=== PATIENT | male | born 1990 ===

== ENCOUNTER 2025-04-26 16:36 | Emergency (ER) | payer OTHER ==
[2025-04-26 16:52] LABS: BASOPHILS ABSOLUTE AUTO 0.08 K/uL (0.00-0.20); BASOPHILS PERCENT AUTO 0.9 % (0.0-2.0); EOSINOPHILS ABSOLUTE AUTO 2.32 K/uL (0.00-0.50); EOSINOPHILS PERCENT AUTO 26.6 % (0.0-5.0); IMMATURE GRAN ABSOLUTE AUTO 0.01 10^3/uL (0.00-0.04); IMMATURE GRAN PERCENT AUTO 0.1 % (0.0-0.4); LYMPHOCYTES ABSOLUTE AUTO 3.98 K/uL (0.50-3.50); LYMPHOCYTES PERCENT AUTO 45.6 % (10.0-50.0); MONOCYTES ABSOLUTE AUTO 0.51 K/uL (0.00-1.00); MONOCYTES PERCENT AUTO 5.8 % (2.0-14.0); NEUTROPHILS ABSOLUTE AUTO 1.82 K/uL (1.40-7.00); NEUTROPHILS PERCENT AUTO 21.0 % (45.0-80.0); PLATELET COUNT,PLT 250 K/uL (150-350); RED BLOOD CELL COUNT 5.57 M/uL (4.33-5.41); RED CELL DISTRIBUTION WIDTH 12.2 % (11.2-14.1); WHITE BLOOD CELL COUNT,WBC 8.7 K/uL (4.0-10.2)
[2025-04-26 17:18] LABS: BILIRUBIN TOTAL 0.6 mg/dL (0.2-1.0); CARBON DIOXIDE,CO2 25.6 mmol/L (21.0-32.0); CHLORIDE,CL 103 mmol/L (98-107); CREATINE KINASE,CK 263 U/L (26-308); POTASSIUM,K 4.1 mmol/L (3.5-5.1)
[2025-04-26 17:25] LABS: INR 1.0 (0.9-1.1); PTT,PARTIAL THROMBOPLSTIN TIME 26.6 SEC (23.8-34.4)
[2025-04-26 17:31] LABS: BLOOD UREA NITROGEN,BUN 14 mg/dL (7-18); CREATININE 1.05 mg/dL (0.51-1.17); GLUCOSE RANDOM 143 mg/dL (70-99)
[2025-04-26 17:47] LABS: ESTIMATED GFR 96 mL/min (>=60)
[2025-04-26 17:53] LABS: SODIUM,NA 141 mmol/L (136-145)
[2025-04-26] MEDS: Take Home: Acetaminophen/Codeine 300 MG/30 MG, 5 Tab Pack PO ONE (18:25)
== END 2025-04-26 18:50 | disposition home or self-care (01) ==
LOC: LL.ED 16:36
DX: S80.12XA Contusion of left lower leg, initial encounter (principal); Z79.899 Other long term (current) drug therapy; W20.8XXA Other cause of strike by thrown, projected or falling object, initial encounter; Y93.89 Activity, other specified
CPT/HCPCS: 36415; 73590-LT; 80053; 82550; 83735; 85025; 85610; 85730; 86140; 99283; 99284; A9270-GY